=== PATIENT | female | born 1970 | race Caucasian/White ===

== ENCOUNTER → 2016-11-26 | Outpatient (REF) | payer OTHER | LOC: M SFHCLERA 09:43 | PROVIDERS: ATTEND Physician Assistant | DX: E22.9 Hyperfunction of pituitary gland, unspecified (principal) ==

== ENCOUNTER 2016-12-10 06:07 | Day surgery (SDC) | payer OTHER ==
[~2016-12-10] VITALS: Ht 162.6 cm; Wt 95.2 kg
[2016-12-10] VITALS (8 sets, daily range): BP systolic 100–130; BP diastolic 54–65
[~2016-12-10 06:07] MED LIST: ADDE10CA PO; ADDE30CA PO; DULO30CA PO; PHEN-239 PO; WELLTAB38 PO; XANA0.5T PO
[2016-12-10 06:50] LABS: CONTROL LINE HCG INT CTR LINE PRESENT
[2016-12-10 06:59] LABS: MEAN CORPUSCULAR HEMOGLOBIN 29.8 pg (27.0-33.0); MEAN CORPUSCULAR HGB CONC 33.3 g/dl (32.0-36.5); MEAN CORPUSCULAR VOLUME 89.4 fl (80.0-96.0); RED CELL DISTRIBUTION WIDTH 12.6 % (11.5-14.5); WHITE BLOOD COUNT 5.8 K/mm3 (4.0-10.0)
[2016-12-10] MEDS: LR 1,000 ML IV SCH ×4 (07:05→21:11)
[2016-12-10] MEDS ORDERED: MIDAZOLAM INJ 2 MG/2 ML VIAL (J2250) As Ordered ONE ×2 (07:15→07:40)
[2016-12-10] MEDS ORDERED: fentaNYL 250 MCG/5 ML INJECTION (J3010) As Ordered ONE (07:16)
[2016-12-10] MEDS ORDERED: LIDOCAINE 2% INJ 100 MG/5 ML SDV (FOR ANES.) As Ordered ONE (07:17)
[2016-12-10] MEDS ORDERED: PROPOFOL 200 MG/20 ML VIAL As Ordered ONE (07:18)
[2016-12-10] MEDS ORDERED: SCOPOLAMINE 1.5 MG TRANSDERMAL As Ordered ONE (07:19)
[2016-12-10] MEDS ORDERED: ROCURONIUM BROMIDE 50 MG/5 ML VIAL As Ordered ONE (07:21)
[2016-12-10] MEDS ORDERED: ceFAZolin 2 GM/D5W 50 ML IV BAG (J0690) As Ordered ONE (07:56)
[2016-12-10] MEDS ORDERED: ONDANSETRON 4MG/2ML VIAL (J2405) As Ordered ONE ×2 (08:13→08:57)
[2016-12-10] MEDS ORDERED: dexameTHASONE 4 MG/ML 1ML VIAL (J1100) As Ordered ONE (08:13)
[2016-12-10] MEDS ORDERED: GLYCOPYRROLATE INJ 0.2 MG/ML 2 ML VIAL As Ordered ONE (08:44)
[2016-12-10] MEDS ORDERED: NEOSTIGMINE 1MG/ML 5 ML SYRINGE (J2710) As Ordered ONE (08:45)
[2016-12-10] MEDS ORDERED: MORPHINE PCA 1MG/ML 100ML CADD As Ordered ONE (10:21)
[2016-12-10] MEDS ORDERED: EPIDURAL/PCA KEYS XX PRN (10:30)
[2016-12-10] MEDS ORDERED: ONDANSETRON 4MG/2ML VIAL (J2405) IV PRN (10:30)
[2016-12-10] MEDS ORDERED: NALBUPHINE HCL 10 MG/ML AMP (J2300) IV PRN (10:30)
[2016-12-10] MEDS ORDERED: MORPHINE PCA 1MG/ML 100ML CADD IV PRN (10:30)
[2016-12-10] MEDS ORDERED: diphenhydrAMINE INJ 50MG/ML VIAL (J1200) IV PRN (10:30)
[2016-12-10] MEDS ORDERED: LR 1,000 ML IV SCH (10:30)
[2016-12-10] MEDS ORDERED: MORPHINE 2 MG/ML 1ML SYRINGE IV PRN (10:30)
[2016-12-10] MEDS ORDERED: NALOXONE INJ 0.4 MG/1 ML VIAL (J2310) IV PRN (10:30)
[2016-12-10] MEDS ORDERED: METOCLOPRAMIDE INJ 10MG/2ML VIAL (J2765) IV PRN (10:30)
[2016-12-10] MEDS ORDERED: PERCOCET 5MG/325MG TAB PO PRN (10:30)
[2016-12-10] MEDS: fentaNYL 100 MCG/2 ML INJECTION (J3010) IV PRN ×4 (10:41→11:17)
[2016-12-10] MEDS ORDERED: SCOPOLAMINE 1.5 MG TRANSDERMAL TOP ONE (11:30)
[2016-12-10] MEDS: DULoxetine 30 MG CAP (CYMBALTA) PO SCH (14:07)
[2016-12-10] MEDS: buPROPion **XL** TABLET 150MG (WELLBUTRIN XL) PO SCH (14:07)
--- NOTE | 2016-12-10 20:05 | RO ---
DATE OF PROCEDURE: 12/10/2016 PREOPERATIVE DIAGNOSES: Bleeding, tenderness, dyspareunia, pain. POSTOPERATIVE DIAGNOSIS: Bleeding, tenderness, dyspareunia, pain. OPERATIVE PROCEDURE: Total vaginal hysterectomy with bilateral salpingectomy and lyses of adhesions and cystourethroscopy. SURGEON: Maria Antonia Renae MD MEDICAL BILLER: ANESTHESIA: General endotracheal anesthesia. BRIEF DESCRIPTION OF PROCEDURE AND FINDINGS: Natalia was brought to the operating room where sufficient general endotracheal anesthesia was induced and she was prepped, draped and positioned in the usual sterile fashion. With the weighted speculum placed the anterior and posterior aspect of the cervix was grasped with a single-tooth tenaculum and the bladder empty. A circumferential incision was made around the base of the cervix and then the cardinal ligaments were isolated, clamped, transected and ligated using the LopesBeckman clamps which were used throughout this portion of the case and #0 Vicryl suture which was also used throughout. After the cardinal ligament had been transected, the uterosacral ligament were clamped, transected and ligated and marked for later reattachment of the cuff and of course the posterior flexion of the peritoneum was transected. Anteriorly, there was extensive adhesions. This is consistent with post section scarring and so sharp dissection was necessary staying close to the uterus and we were able with considerable sharp dissection to continue working through here while progressively clamping, transecting and ligating the uterine vasculature along the lateral aspect of the uterus. We were two-thirds to three-quarters of the way up the fundus before we finally found the reflection anteriorly and of course due to the extensive adhesions in the anterior uterus, which I suspect, but of course cannot be sure whether this is related to her previous section history or not or related to her endometriosis history, I do not know, but it is suspicious to me that it is section related, but anyway given the location and the proximity to the bladder, a decision was made to do the cystourethroscopy at the end of the case. We then continued our dissection and delivered the uterus, and then holding the pedicles of the fallopian tubes we were able to bring down the fimbria and clamp, transect and ligate this to deliver the fimbria and the fallopian tubes. There was extensive adhesions to the omentum and so there may be a couple midportion loops of tube that are not removed, but we definitely got the fimbria on both sides and there was also a cyst on the patient's right ovary and given her history of endometriosis we also removed that, but this after removal did not appear to be an endometrioma, but rather just a simple functional cyst, otherwise, the ovaries were totally normal in appearance and of course after removal of the cyst, both ovaries were normal in appearance including the right one where that cyst came off. We then checked each pedicle, they were dry. Angled stitched of #0 Vicryl were taken and then of course connecting also to the ureterosacrals we closed the vaginal cuff in the usual fashion with running locked stitches of #0 Vicryl with good approximation and hemostasis achieved. Attention was then turned to the cystourethroscopy where the bladder was scoped. We were able to see the absence of any injury to the bladder including along the line of that dissection at the posterior aspect of the bladder which had been over the anterior aspect of the uterus. We also saw normal jets of urine bilaterally and the cysto was then ended. Estimated blood loss for the procedure was about 50 mL. Fluid replacement was crystalloid. Complications: None. CONDITION AND DISPOSITION: Natalia tolerated the procedure well and was recovering in the recovery room in good condition.
[2016-12-10] MEDS: IBUPROFEN 600 MG TAB PO PRN (21:10)
[2016-12-11] VITALS: BP 116/68
[2016-12-11 04:00] VITALS: BP 121/76
[2016-12-11] MEDS ORDERED: NORCO, ANEXSIA 5/325MG TABLET (HYDROcodone/ACETAMINOPHEN) PO PRN (06:00)
[2016-12-11] MEDS: IBUPROFEN 600 MG TAB PO PRN (06:47)
[2016-12-11 07:54] LABS: MEAN CORPUSCULAR HEMOGLOBIN 29.8 pg (27.0-33.0); MEAN CORPUSCULAR HGB CONC 32.9 g/dl (32.0-36.5); MEAN CORPUSCULAR VOLUME 90.6 fl (80.0-96.0); RED CELL DISTRIBUTION WIDTH 12.9 % (11.5-14.5); WHITE BLOOD COUNT 9.2 K/mm3 (4.0-10.0)
[2016-12-11 08:00] VITALS: BP 112/59
[2016-12-11] MEDS: DULoxetine 30 MG CAP (CYMBALTA) PO SCH (08:46)
[2016-12-11] MEDS: buPROPion **XL** TABLET 150MG (WELLBUTRIN XL) PO SCH (08:46)
[2016-12-11] MEDS ORDERED: MOTR200T44 PO (09:42)
[2016-12-11] MEDS ORDERED: LORT5TAB PO (09:42)
[2016-12-11 12:00] VITALS: BP 119/60
== END 2016-12-11 12:40 | disposition home or self-care (01) ==
LOC: M SDC 06:07 → M PED 11:47 → M SDC 12-11 12:40
PROVIDERS: ATTEND Obstetrics & Gynecology
DX: N92.0 Excessive and frequent menstruation with regular cycle (principal); N94.10 Unspecified dyspareunia; R10.2 Pelvic and perineal pain; E66.9 Obesity, unspecified; G47.00 Insomnia, unspecified; D64.9 Anemia, unspecified; R23.3 Spontaneous ecchymoses; F41.9 Anxiety disorder, unspecified; Z88.0 Allergy status to penicillin; Z91.040 Latex allergy status; Z79.899 Other long term (current) drug therapy
CPT/HCPCS: 36415; 58262; 84703; 85027; 86850; 86900; 86901; 88307; J0690; J1100; J2250; J2405; J2710; J3010

== ENCOUNTER → 2017-06-11 | Outpatient (REF) | payer OTHER ==
[~2017-06-11] MED LIST changes: -ADDE10CA PO; +ADDE10CA3 PO; -ADDE30CA PO; +ADDE30CA3 PO; +LORT5TAB PO; +MOTR200T44 PO
== END ==
LOC: M SFHCLERA 15:17
PROVIDERS: ATTEND Physician Assistant
DX: Z01.84 Encounter for antibody response examination (principal)

== ENCOUNTER → 2018-12-03 | Outpatient (REF) | payer OTHER ==
[2018-12-03 17:27] LABS: BASO # 0.1 10^3/uL (0.0-0.2); BASO % 1.1 % (0.0-1.0); EOS # 0.2 10^3/uL (0.0-0.50); HEMATOCRIT 45.3 % (36.0-47.0); HEMOGLOBIN 14.8 g/dl (12.0-15.5); LYMPH # 3.2 10^3/uL (1.5-4.5); LYMPH % 35.5 % (24.0-44.0); MEAN CORPUSCULAR HEMOGLOBIN 30.3 pg (27.0-33.0); MEAN CORPUSCULAR HGB CONC 32.7 g/dl (32.0-36.5); MEAN CORPUSCULAR VOLUME 92.8 fl (80.0-96.0); MONO # 0.7 10^3/uL (0.0-0.8); MONO % 7.9 % (0.0-5.0); NEUTROPHILS # 4.8 10^3/uL (1.8-7.7); NEUTROPHILS % 53.1 % (36.0-66.0); PLATELET COUNT, AUTOMATED 421 10^3/uL (150-450); RED BLOOD COUNT 4.88 10^6/uL (4.00-5.40)
[2018-12-03 17:41] LABS: ALT/SGPT 48 U/L (12-78); BILIRUBIN,TOTAL 0.5 MG/DL (0.2-1.0); BLOOD UREA NITROGEN 17 MG/DL (7-18); CALCIUM LEVEL 8.9 MG/DL (8.5-10.1); CARBON DIOXIDE LEVEL 26 MEQ/L (21-32); CHLORIDE LEVEL 106 MEQ/L (98-107); CHOLESTEROL LEVEL 233 MG/DL (<200); CREATININE FOR GFR 0.79 MG/DL (0.55-1.30); GLOMERULAR FILTRATION RATE > 60.0 (>58); GLUCOSE, FASTING 77 MG/DL (70-100); HDL CHOLESTEROL 66 MG/DL (>40); LDL CHOLESTEROL 155 MG/DL (<100); NON-HDL-C 167 MG/DL; POTASSIUM SERUM 5.3 MEQ/L (3.5-5.1); SODIUM LEVEL 138 MEQ/L (136-145); TOTAL 25(OH) VITAMIN D 17.2 NG/ML (30.0-100.0); TOTAL PROTEIN 7.6 GM/DL (6.4-8.2); TRIGLYCERIDES LEVEL 62 MG/DL (<150)
== END ==
LOC: M SFHCLERA 11:03
PROVIDERS: ATTEND Nurse Practitioner Family
DX: Z13.220 Encounter for screening for lipoid disorders (principal); E55.9 Vitamin D deficiency, unspecified